=== PATIENT | female | born 1960 | race Caucasian/White ===

== ENCOUNTER 2018-01-27 21:08 | Inpatient (IN) | payer MEDICAID ==
[~2018-01-27] VITALS: Ht 167.6 cm; Wt 61.9 kg
--- NOTE | 2018-01-27 21:30 | NUR ---
57 yo female [facility]. patient is alert and oriented x 3, c/o rectal bleeding and pain. patient ds to er bed, skin warm and dry, resp even and unlabored. aptient gowned,placed on monitor tech. awaiting orders from [facility]
--- NOTE | 2018-01-27 21:34 | NUR ---
20g right fa iv started, blood sample obtained and sent to lab. medicated pt as ordered
[2018-01-27 21:48] LABS: BASOPHILS # (AUTO) 0.2 /CMM (0.0-0.2); BASOPHILS % (AUTO) 1.7 % (0.0-2.0); EOSINOPHILS # (AUTO) 0.4 /CMM (0.0-0.7); EOSINOPHILS % (AUTO) 3.7 % (0.0-6.0); HEMATOCRIT 30 % (33-45); HEMOGLOBIN 10.3 g/dL (11.5-14.8); LYMPHOCYTES # (AUTO) 2.6 /CMM (0.8-4.8); LYMPHOCYTES % (AUTO) 23.1 % (20.0-44.0); MEAN CORPUSCULAR HEMOGLOBIN 29 PG (26.0-33.0); MEAN CORPUSCULAR HGB CONC 34 g/dl (31.0-36.0); MEAN CORPUSCULAR VOLUME 84 fL (82-100); MONOCYTES # (AUTO) 0.8 /CMM (0.1-1.30); NEUTROPHILS # (AUTO) 7.2 /CMM (1.8-8.9); NEUTROPHILS % (AUTO) 64.5 % (43.0-81.0); PLATELET COUNT (AUTO) 222 /CMM (150-450); RDW COEFFICIENT OF VARIATION 18.1 (11.5-15.0); WHITE BLOOD COUNT (AUTO) 11.2 K/uL (4.3-11.0)
[2018-01-27] MEDS ORDERED: IV NS 0.9% 1,000 ML BAG IV ONE (22:00)
[2018-01-27 22:05] LABS: INR 1.05 (0.85-1.15)
[2018-01-27 22:12] LABS: ALBUMIN 2.1 g/dL (3.4-5.0); BILIRUBIN,DIRECT 0.2 mg/dL (0.0-0.2); BILIRUBIN,TOTAL 0.4 mg/dL (0.2-1.0); CALCIUM, SERUM 8.2 mg/dL (8.5-10.1); CREATININE 0.5 mg/dL (0.6-1.3); POTASSIUM 3.2 mmol/L (3.5-5.1); TOTAL PROTEIN, SERUM 5.9 g/dL (6.4-8.2)
--- NOTE | 2018-01-27 23:26 | NUR ---
CALLED NURSING SUP. FOR TELE BED
[2018-01-27] MEDS ORDERED: PANTOPRAZOLE 40 MG VIAL IV ONE (23:30)
[2018-01-27] MEDS ORDERED: POTASSIUM CHLORIDE 20 MEQ POWDER PACKET PO ONE (23:30)
[2018-01-27] MEDS ORDERED: IV NS 0.9% 250 ML IV ONE (23:31)
[2018-01-27] MEDS ORDERED: IOHEXOL-300 100 ML VIAL IV ONE (23:31)
[2018-01-27] MEDS ORDERED: PANTOPRAZOLE 40 MG VIAL ONE (23:38)
[2018-01-27] MEDS ORDERED: POTASSIUM CHLORIDE 20 MEQ POWDER PACKET ONE (23:38)
--- NOTE | 2018-01-28 00:40 | NUR ---
tele [phone]
--- NOTE | 2018-01-28 01:05 | NUR ---
report given to marixa ferrara for vishal
--- NOTE | 2018-01-28 01:25 | NUR ---
RN OPENING NOTES PT RECEIVED FROM ER VIA EDSON. A/OX2. ON ROOM AIR, BREATHING EVEN AND UNLABORED. DENIES SOB OR PAIN AT THIS TIME. IV TO RFA PATENT AND INTACT. DURAN DUMONT DRAIN NOTED TO ABDOMEN WITH COLOSTOMY. BRIGHT RED BLOOD NOTED ON DIAPER. CLEANED PT. ORIENTED PT TO ROOM AND CALL LIGHT. SIDE RAILS UPX2, BED IN LOW/LOCKED POSITION WITH CALL LIGHT IN REACH. WILL CONTINUE TO MONITOR
[2018-01-28 01:30] VITALS: BP 95/69
--- NOTE | 2018-01-28 03:00 | NUR ---
RN NOTES PAGED DR. LUCERO FOR ADMITTING ORDERS
[2018-01-28] MEDS ORDERED: ATEN25TA PO (03:26)
[2018-01-28] MEDS ORDERED: FLUP5TAB PO (03:26)
[2018-01-28] MEDS ORDERED: HYDR-552 PO (03:26)
[2018-01-28] MEDS ORDERED: IPRA0.2S49 NEB (03:26)
[2018-01-28] MEDS ORDERED: PANT40TA4 PO (03:26)
[2018-01-28] MEDS ORDERED: NA P133E RC (03:26)
[2018-01-28] MEDS ORDERED: ALBU2.5V38 NEB (03:26)
[2018-01-28] MEDS ORDERED: ESCI5TAB PO (03:26)
[2018-01-28] MEDS ORDERED: ACET325C5 PO (03:26)
[2018-01-28] MEDS ORDERED: BISA-79 PO (03:26)
[2018-01-28] MEDS ORDERED: BISA-79 RC (03:26)
[2018-01-28] MEDS ORDERED: ATOR40TA PO (03:26)
[2018-01-28] MEDS ORDERED: MAGN400O6 PO (03:26)
[2018-01-28] MEDS ORDERED: SENN-167 PO (03:31)
[2018-01-28] MEDS ORDERED: LORA1TAB PO (03:31)
[2018-01-28 04:00] VITALS: BP 94/65
--- NOTE | 2018-01-28 04:12 | NUR ---
RN NOTES SPOKE TO DR. LUCERO. WILL INPUT ADMITTING ORDERS
[2018-01-28] MEDS ORDERED: MAG HYDROX/AL HYDROX/SIMETH 30 ML UDC PO PRN (04:30)
[2018-01-28] MEDS ORDERED: ONDANSETRON HCL/PF 4 MG/2 ML VIAL IVP PRN (04:30)
[2018-01-28] MEDS ORDERED: ACETAMINOPHEN 325 MG TABLET PO PRN (04:30)
[2018-01-28] MEDS ORDERED: Z GUARD REMEDY 2 OZ OINT TP PRN (04:30)
[2018-01-28] MEDS ORDERED: HYDROCODONE/APAP 5/325MG 1 EACH TABLET PO PRN ×2 (04:30)
[2018-01-28] MEDS ORDERED: ZOLPIDEM TARTRATE 5 MG TABLET PO PRN (04:30)
[2018-01-28] MEDS ORDERED: MAGNESIUM HYDROXIDE 30 ML UDC PO PRN (04:30)
[2018-01-28] MEDS ORDERED: IPRATROPIUM NEB FS 0.5 MG/2.5 ML AMPUL.NEB NEB PRN (04:30)
[2018-01-28] MEDS ORDERED: ALBUTEROL FS 2.5 MG/3 ML VIAL.NEB NEB PRN (04:30)
--- NOTE | 2018-01-28 07:15 | NUR ---
RN NOTES PT IS LAYING DOWN IN BED, SLEEPING COMFORTABLY. PT ON RA, RESPIRATIONS ARE EVEN AND UNLABORED. IV ON RFA INTACT AND SL. SAFETY MEASURES ARE IN PLACE, CALL LIGHT IS IN REACH. WILL CONTINUE TO MONITOR.
--- NOTE | 2018-01-28 07:36 | NUR ---
MS/RN CLOSING NOTES PT RESTING IN BED. A/OX1-2. FORGETFUL AND IMPULSIVE AT TIMES. NEEDS FREQUENT REORIENTATION. ON ROOM AIR, BREATHING EVEN AND UNLABORED. DENIES SOB OR PAIN AT THIS TIME. IV TO RFA PATENT AND INTACT. SHITAL DRAIN TO ABDOMEN-5ML OF BROWNISH COLORED OUTPUT. COLOSTOMY IN PLACE. SMALL TO MODERATE AMOUNTS OF BRIGHT RED BLOOD NOTED IN DIAPER THROUGHOUT SHIFT. GI CONSULT ORDERED WITH DR. TORRES. ABLE TO USE BSC WITH ASSIST. BED IN LOW/LOCKED POSITION WITH CALL LIGHT IN REACH. SIDE RAILS UPX2, AND BED ALARM ON FOR SAFETY. ENDORSED TO DAY SHIFT RN CL[place].
[2018-01-28 08:00] VITALS: BP 96/68
[2018-01-28] MEDS: PANTOPRAZOLE 40 MG VIAL IV SCH (08:20)
[2018-01-28] MEDS: ESCITALOPRAM OXALATE (10 MG) 10 MG TABLET PO SCH (08:20)
--- NOTE | 2018-01-28 08:32 | NUR ---
RN NOTES PT GETTING OUT OF BED BY HERSELF. PT PUTS DIRECTOR OF EDUCATION AND TRAINING LIGHT AND THEN GETS UP WITHOUT WAITING FOR ASSISTANCE. BED ALARM IS ON, SIDE RAILS UP X2 AND BED IS IN LOW AND LOCKED POSITION. CALL LIGHT IS IN REACH. WILL CONTINUE TO REMIND PT TO WAIT FOR ASSISTANCE.
--- NOTE | 2018-01-28 09:57 | NUR ---
RN NOTES PT WAS FOUND IN HER ROOM WITH SHITAL DRAIN OUT OF HER BODY. ALTON SHARMA WAS INFORMED
[2018-01-28 12:47] LABS: CALCIUM, SERUM 8.1 mg/dL (8.5-10.1); CREATININE 0.5 mg/dL (0.6-1.3); POTASSIUM 3.6 mmol/L (3.5-5.1)
[2018-01-28 12:49] LABS: BASOPHILS # (AUTO) 0.1 /CMM (0.0-0.2); BASOPHILS % (AUTO) 0.5 % (0.0-2.0); EOSINOPHILS # (AUTO) 0.4 /CMM (0.0-0.7); EOSINOPHILS % (AUTO) 4.1 % (0.0-6.0); HEMATOCRIT 32 % (33-45); HEMOGLOBIN 10.7 g/dL (11.5-14.8); LYMPHOCYTES # (AUTO) 1.6 /CMM (0.8-4.8); LYMPHOCYTES % (AUTO) 15.2 % (20.0-44.0); MEAN CORPUSCULAR HEMOGLOBIN 29 PG (26.0-33.0); MEAN CORPUSCULAR HGB CONC 34 g/dl (31.0-36.0); MEAN CORPUSCULAR VOLUME 85 fL (82-100); MONOCYTES # (AUTO) 0.7 /CMM (0.1-1.30); MONOCYTES % (AUTO) 6.6 % (2.0-12.0); NEUTROPHILS # (AUTO) 7.7 /CMM (1.8-8.9); NEUTROPHILS % (AUTO) 73.6 % (43.0-81.0); PLATELET COUNT (AUTO) 211 /CMM (150-450); RDW COEFFICIENT OF VARIATION 18.3 (11.5-15.0); RED BLOOD CELL COUNT(AUTO) 3.72 MIL/uL (4.0-5.2); WHITE BLOOD COUNT (AUTO) 10.5 K/uL (4.3-11.0)
--- NOTE | 2018-01-28 13:00 | NUR ---
RN NOTES PER DR. DICKINSON, NO SURGICAL INTERVENTION NEEDED TO RE-PLACE THE SHITAL DRAIN THAT WAS PULLED OUT.
--- NOTE | 2018-01-28 18:41 | NUR ---
RN NOTES PT IS LAYING DOWN IN BED, RESTING COMFORTABLY, WITH SITTER AT BEDSIDE. PT ON RA, RESPIRATIONS ARE EVEN AND UNLABORED. IV ON RFA INTACT AND SL. ALL MEDS WERE GIVEN ORDERED AND PT NEEDS MET. COLOSTOMY BAG CHANGED TWICE, NO BLOOD NOTED IN STOOL. SAFETY MEASURES ARE IN PLACE, CALL LIGHT IS IN REACH. WILL ENDORSE TO DIRECTOR OF RESEARCH CENTER RN FOR CONTINUITY OF CARE.
--- NOTE | 2018-01-28 19:45 | NUR ---
MS RN OPENING NOTES RECEIVED PT IN BED, AWAKE, ALERT, VERBALLY RESPONSIVE, ON ROOM AIR RESPIRATIONS EVEN, UNLABORED, NO APPARENT DISTRESS NOTED. DENIES ANY PAIN OR DISCOMFORT AT THIS TIME. IV SITE RFA INTACT, PATENT. ATTENDED ALL NEEDS. BED LOCKED IN LOWEST POSITION. WILL CONTINUE TO MONITOR ACCORDINGLY.
[2018-01-28] MEDS: ATORVASTATIN 40 MG TABLET PO SCH (21:24)
[2018-01-28] MEDS: LORAZEPAM 1 MG TABLET PO PRN (21:25)
[2018-01-28 22:00] VITALS: BP 100/64
--- NOTE | 2018-01-29 06:11 | NUR ---
MS RN CLOSING TAMARA PT IN BED RESTING COMFORTABLY, ON ROOM AIR, RESPIRATIONS EVEN, UNLABORED. BED LOCKED IN LOWEST POSITION. CALL LIGHT WITHIN REACH. WILL CONTINUE TO MONITOR ACCORDINGLY AND ENDORSE TO DAY SHIFT FOR CONTINUITY OF CARE.
--- NOTE | 2018-01-29 07:25 | NUR ---
MS RN OPENING NOTES RECEIVED PT AWAKE IN BED IN NO ACUTE SIGNS OF DISTRESS. A/O X1-2, SAME VERBALLY RESPONSIVE, DENIES ANY PAIN OR DISCOMFORTS AT THIS TIME. ON ROOM AIR, BREATHING IS EVEN AND UNLABORED. IV ACCESS ON RIGHT FA PATENT AND INTACT. COLOSTOMY IN PLACE AND NOTED WITH SOFT GREENISH DARK STOOL. CHECKED DIAPER FOR RECTAL BLEEDING, NONE NOTED AT THIS TIME. HOB ELEVATED. BED IN LOW/LOCKED POSITION WITH SIDE RAILS UP X2. CALL LIGHT WITHIN REACH. WILL CONTINUE TO MONITOR.
[2018-01-29 07:58] LABS: BASOPHILS % (AUTO) 0.2 % (0.0-2.0); EOSINOPHILS # (AUTO) 0.4 /CMM (0.0-0.7); EOSINOPHILS % (AUTO) 3.7 % (0.0-6.0); HEMATOCRIT 29 % (33-45); HEMOGLOBIN 9.8 g/dL (11.5-14.8); LYMPHOCYTES # (AUTO) 1.5 /CMM (0.8-4.8); LYMPHOCYTES % (AUTO) 13.4 % (20.0-44.0); MEAN CORPUSCULAR HEMOGLOBIN 29 PG (26.0-33.0); MEAN CORPUSCULAR HGB CONC 34 g/dl (31.0-36.0); MEAN CORPUSCULAR VOLUME 84 fL (82-100); MONOCYTES % (AUTO) 8.9 % (2.0-12.0); NEUTROPHILS % (AUTO) 73.8 % (43.0-81.0); PLATELET COUNT (AUTO) 198 /CMM (150-450); RDW COEFFICIENT OF VARIATION 18.1 (11.5-15.0); RED BLOOD CELL COUNT(AUTO) 3.37 MIL/uL (4.0-5.2); WHITE BLOOD COUNT (AUTO) 10.9 K/uL (4.3-11.0)
[2018-01-29 08:00] VITALS: BP 88/62
[2018-01-29 08:16] LABS: CALCIUM, SERUM 7.8 mg/dL (8.5-10.1); CREATININE 0.4 mg/dL (0.6-1.3); MAGNESIUM 1.7 mg/dL (1.8-2.4); PHOSPHORUS 4.6 mg/dL (2.5-4.9); POTASSIUM 3.3 mmol/L (3.5-5.1)
[2018-01-29] MEDS: PANTOPRAZOLE 40 MG VIAL IV SCH (08:16)
[2018-01-29] MEDS: ESCITALOPRAM OXALATE (10 MG) 10 MG TABLET PO SCH (08:17)
[2018-01-29 08:21] LABS: THYROID STIMULATING HORMONE 1.333 uIU/mL (0.358-3.74)
[2018-01-29] MEDS: Magnesium 1GM/D5W 100ML PREMIX 100 ML IV SCH ×2 (10:20→11:23)
[2018-01-29] MEDS ORDERED: POTASSIUM CHLORIDE 20 MEQ TAB.PRT.SR PO SCH (10:30)
[2018-01-29 11:47] LABS: OCCULT BLOOD STOOL NEGATIVE (NEGATIVE)
--- NOTE | 2018-01-29 12:24 | NUR ---
RN NOTES PATIENT NOTED WITH LOW LEVEL OF POTASSIUM 3.3, REPLACED WITH K-DUR 20MEQ TAB X1. LOW MAGNESIUM LEVEL 1.7, REPLACED WITH MAGNESIUM 2 MG IV TODAY. WILL CONTINUE TO MONITOR
--- NOTE | 2018-01-29 12:48 | NUR ---
RN NOTES CALLED [facility] IN [place], [place]. SPOKE TO CAROLYN OF MEDICAL RECORDS AND SAID THAT SHE WILL FAX ALL MEDICAL AND SURGICAL RECORDS OF PT. WILL FOLLOW-UP.
--- NOTE | 2018-01-29 13:22 | NUR ---
RN NOTES PT'S MEDICAL AND SURGICAL RECORDS FOR [facility] RECORDS RECEIVED VIA FAX AND FILED ON CHART. ALTON DAMON MADE AWARE.
[2018-01-29 16:00] VITALS: BP 110/57
--- NOTE | 2018-01-29 16:05 | NUR ---
RN NOTES PT STILL NOTED HAVING SMALL AMOUNT OF RECTAL BLEEDING EVERY TIME SHE USES THE BEDSIDE COMMODE. MD AWARE WITH ORDER TO DO CBC AND BMP TOMORROW, SAME TO FOLLOW-UP WITH GI AND ONCOLOGY DOCTOR. NO ANTIPLATELETS AND ANTICOAGULANTS. WILL CONTINUE TO MONITOR.
[2018-01-29] MEDS ORDERED: PEG 3350/NA SULF,BICARB,CL/KCL 4,000 ML BOTTLE PO ONE (17:30)
--- NOTE | 2018-01-29 17:30 | NUR ---
RN NOTES PATIENT FOR COLONOSCOPY TOMORROW AT 12:30PM. EXPLAINED PROCEDURE TO PT AND VERBALIZED UNDERSTANDING. CONSENT SIGNED AND FILED ON CHART. PT TO START ON GOLYTELY SOLUTION P.O. AND NPO POST MIDNIGHT. WILL ENDORSED TO INCOMING NURSE.
--- NOTE | 2018-01-29 18:01 | NUR ---
RN NOTES PT STARTED ON GOLYTELY SOLUTION P.O. WILL CONTINUE TO MONITOR.
--- NOTE | 2018-01-29 18:48 | NUR ---
RN NOTES CARAMEL CUTTER HELPER ALTON STOVER CAME TO UNIT AND ASSESSED PATIENT. AFTER REVIEWING PT'S MEDICAL /SURGICAL RECORDS THAT CAME FROM [facility] IN [place], [place]. SHE VERBALLY ORDERED TO HAVE THE COLONOSCOPY CANCELLED TOMORROW AND STOP GIVING GOLYTELY SOLUTION. SHE ALSO SAID TO CALL DR WILLIAMSON FOR SURGICAL CONSULT. CALLED DR WILLIAMSON AND MADE AWARE. DR WILLIAMSON AT THIS TIME TALKING IN THE PHONE WITH ALTON. WILL FOLLOW-UP
--- NOTE | 2018-01-29 18:54 | NUR ---
MS RN CLOSING NOTES PT AWAKE AND RESTING AT MODERATE HIGH BACKREST IN BED. HOB ELEVATED. A/O X2-3. ABLE TO MAKE NEEDS KNOWN. PT TOLERATING ROOM AIR WITH NO ACUTE RESPIRATORY DISTRESS NOTED DURING THE DAY. IV ACCESS ON RIGHT FA INTACT AND PATENT. COLOSTOMY IN PLACE AND NOTED WITH SOFT DARK STOOL, COLOSTOMY CARE DONE. REMAINS WITH RECTAL BLEEDING ON AND OFF DURING THE DAY, MD AWARE. HOB KEPT ELEVATED. BED IN LOW/LOCKED POSITION WITH SIDE RAILS UP X2. CALL LIGHT AND BEDSIDE TABLE KEPT WITHIN EASY REACH OF PT. ALL NEEDS AND CARE ATTENDED WELL. WILL ENDORSED TO VIBRATION ENGINEER NURSE FOR [place].
--- NOTE | 2018-01-29 19:05 | NUR ---
RN OPENING NOTES RECEIVED PATIENT IN BED, LYING COMFORTABLY, NO SOB NOTED, BREATHING EVEN AND UNLABORED, IN NO ACUTE DISTRESS. ALL PATIENT'S NEEDS ATTENDED TO AT THIS TIME. PATIENT IS ALERT AND ORIENTED X 2 -3 WITH FORGETFULNESS, ABLE TO VERBALIZE NEEDS. CALL LIGHT PLACED WITHIN EASY REACH, BED LOCKED IN PLACE AND IN LOW POSITION. WILL CONTINUE TO MONITOR.
--- NOTE | 2018-01-29 19:33 | NUR ---
RN NOTES SPOKE WITH LINOLEUM LAYER HELPER ALTON STOVER REGARDING PATIENT, RECEIVED NEW ORDERS FOR IV HYDRATION: NORMAL SALINE @ 75 ML/HR AND TO CHANGE ATIVAN PO ORDER TO IV PUSH PATIENT IS NPO AT THIS TIME. ALL ORDERS NOTED AND CARRIED OUT. PATIENT MADE AWARE AND AGREES.
[2018-01-29 20:00] VITALS: BP 100/63
[2018-01-29] MEDS ORDERED: LORAZEPAM INJ 2 MG/ML VIAL IV PRN (20:00)
[2018-01-29] MEDS: ATORVASTATIN 40 MG TABLET PO SCH (22:00)
[2018-01-29] MEDS: IV NS 0.9% 1,000 ML IV PRN (22:28)
--- NOTE | 2018-01-30 06:31 | NUR ---
RN CLOSING NOTES PATIENT IN BED, ASLEEP BUT EASILY AROUSABLE, IN NO ACUTE DISTRESS AND WITH NO C/O PAIN AT THIS TIME. PATIENT CONTINUES TO HAVE RECTAL BLEEDING, DENIES ANY DIZZINESS OR LIGHT HEADEDNESS. RECEIVING IVF NS @ 75 CC/HR, INFUSING WELL VIA IV PERIPHERAL LINE G#22 ON RFA. ALL PATIENT'S NEEDS ATTENDED TO THROUGHOUT THE SHIFT. PAGED SAMPLE TAILOR JOLANTA FOR CLARIFICATION OF COLONOSCOPY ORDER. AWAITING FOR REPLY. WILL ENDORSE TO AM SHIFT NURSE FOR CONTINUITY OF CARE.
--- NOTE | 2018-01-30 07:25 | NUR ---
RN OPENING NOTES RECEIVED PATIENT AWAKE IN BED. A/O X2-3, FORGETFUL. NO ACUTE DISTRESS, NO SOB. DENIES ANY PAIN OR DISCOMFORTS AT THIS TIME. ON ROOM AIR, BREATHING IS EVEN AND UNLABORED. IV SITE INTACT AND PATENT, IVF INFUSING ORDERED. COLOSTOMY IN PLACE. CHECKED DIAPER FOR RECTAL BLEEDING, NONE NOTED AT THIS TIME. HOB ELEVATED. BED IN LOW/LOCKED POSITION WITH SIDE RAILS UP X2. CALL LIGHT WITHIN REACH. WILL CONTINUE TO MONITOR ACCORDINGLY.
[2018-01-30 07:39] LABS: BASOPHILS % (AUTO) 0.4 % (0.0-2.0); EOSINOPHILS # (AUTO) 0.3 /CMM (0.0-0.7); EOSINOPHILS % (AUTO) 3.7 % (0.0-6.0); HEMATOCRIT 29 % (33-45); HEMOGLOBIN 9.6 g/dL (11.5-14.8); LYMPHOCYTES # (AUTO) 1.4 /CMM (0.8-4.8); MEAN CORPUSCULAR HEMOGLOBIN 28 PG (26.0-33.0); MEAN CORPUSCULAR HGB CONC 33 g/dl (31.0-36.0); MEAN CORPUSCULAR VOLUME 86 fL (82-100); MONOCYTES # (AUTO) 0.8 /CMM (0.1-1.30); MONOCYTES % (AUTO) 9.2 % (2.0-12.0); NEUTROPHILS # (AUTO) 6.4 /CMM (1.8-8.9); NEUTROPHILS % (AUTO) 70.7 % (43.0-81.0); PLATELET COUNT (AUTO) 176 /CMM (150-450); RDW COEFFICIENT OF VARIATION 18.6 (11.5-15.0); RED BLOOD CELL COUNT(AUTO) 3.41 MIL/uL (4.0-5.2)
[2018-01-30 07:54] LABS: CALCIUM, SERUM 7.6 mg/dL (8.5-10.1); CREATININE 0.4 mg/dL (0.6-1.3); POTASSIUM 3.4 mmol/L (3.5-5.1)
[2018-01-30 08:00] VITALS: BP 99/65
[2018-01-30] MEDS: ESCITALOPRAM OXALATE (10 MG) 10 MG TABLET PO SCH (10:47)
[2018-01-30] MEDS: PANTOPRAZOLE 40 MG VIAL IV SCH (10:48)
[2018-01-30] MEDS: POTASSIUM CL. PREMIX PERIPHER. 50 ML IV SCH ×2 (10:49→11:51)
[2018-01-30] MEDS: HYDROCODONE/APAP 5/325MG 1 EACH TABLET PO PRN ×2 (10:49→19:09)
[2018-01-30] MEDS: Magnesium 1GM/D5W 100ML PREMIX 100 ML IV SCH ×2 (13:12→14:31)
[2018-01-30] MEDS: IV NS 0.9% 1,000 ML IV PRN (14:31)
[2018-01-30 16:00] VITALS: BP 88/55
[2018-01-30 16:30] VITALS: BP 99/62
--- NOTE | 2018-01-30 17:00 | NUR ---
RN NOTES DR WILLIAMSON ON BEDSIDE ASSESSING THE PATIENT.
--- NOTE | 2018-01-30 18:00 | NUR ---
RN NOTES OK TO CHANGE DIET TO REGULAR PER DR WILLIAMSON.
--- NOTE | 2018-01-30 19:00 | NUR ---
RN CLOSING NOTES PATIENT IN STABLE CONDITION. ALL NEEDS ATTENDED AND PROVIDED. KEPT PATIENT SAFE AND COMFORTABLE. BED IN LOW/LOCKED POSITION, SIDERAILS UPX2, CALL LIGHT IN REACH. ENDORSED TO NIGHT RN FOR [place].
--- NOTE | 2018-01-30 19:00 | NUR ---
MS RN NOTES RECEIVE PT IN BED A/O X 2, NO S/S OF DISTRESS, STABLE, SAFETY MEASURES IN PLACE, CALL LIGHT WITHIN REACH, WILL CONTINUE TO MONITOR
[2018-01-30 20:00] VITALS: BP 96/60
[2018-01-30] MEDS: LORAZEPAM 1 MG TABLET PO PRN (21:45)
[2018-01-30] MEDS: ATORVASTATIN 40 MG TABLET PO SCH (21:45)
--- NOTE | 2018-01-31 06:13 | NUR ---
MS RN NOTES PT IN BED ASLEEP AND EASILY AWAKEN, NOT IN DISTRESS, AM CARE PROVIDED. TOLERATING ROOM AIR 98%. STABLE CONDITION. NO ACUTE CHANGES THROUGHOUT THE SHIFT. KEPT CLEAN AND DRY AND COMFORT. NURSING CARE RENDERED. NEEDS ATTENDED AND ANTICIPATED. NO RECTAL BLEEDING FOR NOW. GOOD SKIN CARE PROVIDED. ON LOW BED TO ENSURE SAFETY, CALL LIGHT WITHIN REACH, WILL ENDORSE TO THE NEXT SHIFT CONTINUE PLAN OF CARE
[2018-01-31 06:43] LABS: BASOPHILS % (AUTO) 0.5 % (0.0-2.0); EOSINOPHILS # (AUTO) 0.3 /CMM (0.0-0.7); EOSINOPHILS % (AUTO) 3.4 % (0.0-6.0); HEMATOCRIT 30 % (33-45); HEMOGLOBIN 9.8 g/dL (11.5-14.8); LYMPHOCYTES # (AUTO) 1.6 /CMM (0.8-4.8); LYMPHOCYTES % (AUTO) 19.4 % (20.0-44.0); MEAN CORPUSCULAR HEMOGLOBIN 28 PG (26.0-33.0); MEAN CORPUSCULAR HGB CONC 33 g/dl (31.0-36.0); MEAN CORPUSCULAR VOLUME 87 fL (82-100); MONOCYTES # (AUTO) 0.6 /CMM (0.1-1.30); MONOCYTES % (AUTO) 6.7 % (2.0-12.0); NEUTROPHILS # (AUTO) 5.8 /CMM (1.8-8.9); PLATELET COUNT (AUTO) 184 /CMM (150-450); RDW COEFFICIENT OF VARIATION 18.7 (11.5-15.0); RED BLOOD CELL COUNT(AUTO) 3.46 MIL/uL (4.0-5.2); WHITE BLOOD COUNT (AUTO) 8.3 K/uL (4.3-11.0)
[2018-01-31 06:59] LABS: CALCIUM, SERUM 7.6 mg/dL (8.5-10.1); CREATININE 0.4 mg/dL (0.6-1.3); MAGNESIUM 2.1 mg/dL (1.8-2.4); PHOSPHORUS 3.5 mg/dL (2.5-4.9); POTASSIUM 3.5 mmol/L (3.5-5.1)
--- NOTE | 2018-01-31 07:56 | NUR ---
WOUND CARE CONSULT WOUND CARE RECEIVED CONSULT FOR SHITAL DRAIN SITE. WOUND CARE WILL DEFER TO SURGEON AT THIS TIME. PATIENT WITH NISHI AT 19.
[2018-01-31 08:00] VITALS: BP 82/44
--- NOTE | 2018-01-31 08:00 | NUR ---
MS RN RECEIVED ON BED, AWAKE,ALERT,ORIENTED X2,NOT IN ANY FORM OF DISTRESS, RESPIRATIONS EVEN AND UNLABORED,NO SOB NOTED, LUNGS ARE CLEAR,ABDOMEN SOFT,POSITIVE BOWEL SOUNDS, DENIES PAIN AT THIS TIME, PATIENT NOTED TO HAVE COLOSTOMY AND LOWER MID ABDOMEN OPEN WOUND FROM PREVIOUS SX, AND WOUND FROM PREVIOUS DRAIN, NO DRAINAGE NOTED, WILL MONITOR PATIENT.
[2018-01-31] MEDS: ESCITALOPRAM OXALATE (10 MG) 10 MG TABLET PO SCH (08:54)
[2018-01-31] MEDS: PANTOPRAZOLE 40 MG VIAL IV SCH (08:54)
--- NOTE | 2018-01-31 09:00 | NUR ---
MS STRINGER BREAKFAST SERVED,DUE MEDS GIVEN,TOLERATED WELL.
[2018-01-31] MEDS ORDERED: SILVER SULFADIAZINE CREAM 25 GM TUBE TP SCH (11:30)
--- NOTE | 2018-01-31 12:00 | NUR ---
MS RN PATIENT WILL BE DISCHARGE TO [facility] AT 330 PM.
--- NOTE | 2018-01-31 15:00 | NUR ---
MS RN PATIENT WENT TO [facility], REPORT AND DISCHARGE INSTRUCTIONS GIVEN TO ALISSA STRINGER.ALL NEEDS ATTENDED.PATIENT REFUSED TO TAKE PICTURE AT BOTH HEELS, ONLY ABDOMEN AREA TAKEN .
== END 2018-01-31 16:01 | DRG 254 ==
LOC: ER 21:10 → TELE 01-28 00:50 → MED 01-28 05:27
DX: K63.1 Perforation of intestine (nontraumatic) (principal); E27.8 Other specified disorders of adrenal gland; E44.0 Moderate protein-calorie malnutrition; C76.2 Malignant neoplasm of abdomen; G95.20 Unspecified cord compression; K57.92 Diverticulitis of intestine, part unspecified, without perforation or abscess without bleeding; D64.9 Anemia, unspecified; I10 Essential (primary) hypertension; F20.9 Schizophrenia, unspecified; F41.9 Anxiety disorder, unspecified; F32.9 Major depressive disorder, single episode, unspecified; E87.6 Hypokalemia; Z93.3 Colostomy status; Z92.21 Personal history of antineoplastic chemotherapy; K21.9 Gastro-esophageal reflux disease without esophagitis; K59.00 Constipation, unspecified; Z88.5 Allergy status to narcotic agent; Z88.0 Allergy status to penicillin; J44.9 Chronic obstructive pulmonary disease, unspecified; K64.8 Other hemorrhoids; N20.0 Calculus of kidney; I70.0 Atherosclerosis of aorta; K44.9 Diaphragmatic hernia without obstruction or gangrene; Z93.1 Gastrostomy status; F17.200 Nicotine dependence, unspecified, uncomplicated; Z79.899 Other long term (current) drug therapy; Z98.890 Other specified postprocedural states; Z85.048 Personal history of other malignant neoplasm of rectum, rectosigmoid junction, and anus
CPT/HCPCS: 36415; 71045-TC; 80048-TC; 80061-TC; 80076-TC; 82272-TC; 83540-TC; 83735-TC; 84100-TC; 84443-TC; 85025-TC; 85730-TC; 86850-TC; 87081-TC; A4606; A6402; A6403; C9113; J2060; J3475; J3480; J7030; J7050; Q9967; Z7610

== ENCOUNTER 2018-06-02 14:07 | Emergency (ER) | payer MEDICAID ==
[~2018-06-02] VITALS: Ht 167.6 cm; Wt 64.9 kg
[~2018-06-02 14:07] MED LIST: ACET325C5 PO; ALBU2.5V38 NEB; ATEN25TA PO; ATOR40TA PO; BISA-79 PO; BISA-79 RC; ESCI5TAB PO; FLUP5TAB PO; HYDR-552 PO; IPRA0.2S49 NEB; LORA1TAB PO; MAGN400O6 PO; NA P133E RC; PANT40TA4 PO; SENN-167 PO
--- NOTE | 2018-06-02 14:10 | NUR ---
BRIGHT RED BLOOD NOTED IN HER DIAPER. HX OF COLON CA. NAD NOTED, VSS, RESP EVEN AND UNLABORED, RESP EVEN AND UNLABORED, PT WAS PUT ON MONITOR, WAITING FOR MD NAVARRO.
[2018-06-02] MEDS ORDERED: IV NS 0.9% 1,000 ML BAG IV ONE (14:30)
[2018-06-02] MEDS ORDERED: ASCO500T9 PO (14:34)
[2018-06-02] MEDS ORDERED: GABA-534 PO (14:34)
[2018-06-02] MEDS ORDERED: AMIN30LI4 PO (14:34)
[2018-06-02] MEDS ORDERED: SODI1TAB3 PO (14:34)
[2018-06-02] MEDS ORDERED: MULT-447 PO (14:34)
[2018-06-02] MEDS ORDERED: HYDR-552 PO ×2 (14:34)
[2018-06-02] MEDS ORDERED: FERR325T23 PO (14:34)
--- NOTE | 2018-06-02 14:44 | NUR ---
Note undone in EDM - 06/02/18 at 1448 by MAYANK BRIGHT RED BLOOD NOTED IN HER DIAPER. HX OF COLON CA. AAOX3, VSS. PT C/O ABD PAIN, DENIES N/V/D, CP, SOB, DIZZINESS @ THIS TIME. PT SEEN & EVAL'D BY DR. HUNTER. PT WILL CONT TO MONITOR.
[2018-06-02 14:46] LABS: MONOCYTES # (AUTO) 0.8 /CMM (0.1-1.30)
[2018-06-02 14:50] LABS: BASOPHILS # (AUTO) 0.1 /CMM (0.0-0.2); EOSINOPHILS % (AUTO) 4.7 % (0.0-6.0); HEMATOCRIT 27 % (33-45); HEMOGLOBIN 8.5 g/dL (11.5-14.8); LYMPHOCYTES # (AUTO) 2.2 /CMM (0.8-4.8); LYMPHOCYTES % (AUTO) 36.1 % (20.0-44.0); MEAN CORPUSCULAR HEMOGLOBIN 28 PG (26.0-33.0); MEAN CORPUSCULAR HGB CONC 32 g/dl (31.0-36.0); MEAN CORPUSCULAR VOLUME 86 fL (82-100); MONOCYTES % (AUTO) 12.1 % (2.0-12.0); NEUTROPHILS # (AUTO) 2.8 /CMM (1.8-8.9); NEUTROPHILS % (AUTO) 46.1 % (43.0-81.0); PLATELET COUNT (AUTO) 195 /CMM (150-450); RDW COEFFICIENT OF VARIATION 24.4 (11.5-15.0); RED BLOOD CELL COUNT(AUTO) 3.08 MIL/uL (4.0-5.2); WHITE BLOOD COUNT (AUTO) 6.2 K/uL (4.3-11.0)
[2018-06-02 14:56] LABS: CALCIUM, SERUM 8.3 mg/dL (8.5-10.1); CREATININE 0.7 mg/dL (0.6-1.3); POTASSIUM 3.7 mmol/L (3.5-5.1)
[2018-06-02 15:02] LABS: ALBUMIN 1.9 g/dL (3.4-5.0); BILIRUBIN,DIRECT 0.1 mg/dL (0.0-0.2); BILIRUBIN,TOTAL 0.2 mg/dL (0.2-1.0)
[2018-06-02 15:06] LABS: INR 1.12 (0.85-1.15)
--- NOTE | 2018-06-02 15:36 | NUR ---
CALLED [facility] FOR BLS TRANSPORT BACK TO [facility]. SPOKE WITH JAIDEN. ETA 90 MINUTES. TRIP#[id number]
[2018-06-02 15:39] VITALS: BP 99/51
--- NOTE | 2018-06-02 15:40 | NUR ---
REPORT GIVEN TO CHARGE, RN [facility]
--- NOTE | 2018-06-02 16:19 | NUR ---
Patient discharged to [facility] facility in stable condition. Written and verbal after care instructions given. Patient verbalizes understanding of instruction.
== END 2018-06-02 16:20 ==
LOC: ER 14:09
DX: C18.9 Malignant neoplasm of colon, unspecified (principal); C54.1 Malignant neoplasm of endometrium; D64.9 Anemia, unspecified; J44.9 Chronic obstructive pulmonary disease, unspecified; K21.9 Gastro-esophageal reflux disease without esophagitis; K59.00 Constipation, unspecified; F20.9 Schizophrenia, unspecified; F32.9 Major depressive disorder, single episode, unspecified; F41.9 Anxiety disorder, unspecified; I10 Essential (primary) hypertension; Z98.890 Other specified postprocedural states; Z85.038 Personal history of other malignant neoplasm of large intestine; Z88.0 Allergy status to penicillin; Z88.5 Allergy status to narcotic agent
CPT/HCPCS: 36415; 74176; 80048; 80076; 83690; 85025; 85730; 86850; 99285; A4606; J7030; Z7610